=== PATIENT | female | born 1980 ===

== ENCOUNTER → 2023-04-08 | Outpatient (CLI) | payer OTHER | END | disposition home or self-care (01) | LOC: RAD 15:51 | DX: M99.05 Segmental and somatic dysfunction of pelvic region (principal); M25.561 Pain in right knee; M54.2 Cervicalgia; M54.6 Pain in thoracic spine ==

== ENCOUNTER → 2023-04-13 07:15 | Outpatient (CLI) | payer OTHER | END | disposition home or self-care (01) | LOC: LAB 07:15 | PROVIDERS: ATTEND Internal Medicine Endocrinology, Diabetes & Metabolism | DX: E03.8 Other specified hypothyroidism (principal) ==